=== PATIENT | female | born 1930 | race Caucasian/White ===

== ENCOUNTER → 2017-10-31 | Outpatient (CLI) | payer MEDICARE ==
[~2017-10-31] MED LIST: ALIGN4 MG PO; ASPIR 8181 MG PO; CALCIUM 600 +1 EAC1 PO; COUMADIN 5 MG TA5 M1 PO; HAIR SKIN NAIL1 EACH PO; NORVASC5 MG PO; OSTEO BI-FLEX1 EAC1 PO; PANTOPRAZOLE SO40 M1 PO; WOMEN MULTIVIT1 EACH PO
--- NOTE | 2017-10-31 17:12 | 2DMMODE ---
[place] [address] 2 D/M-MODE ECHOCARDIOGRAM Name: MADDY BIANCHI Room: [facility]#: [id number] Admission: 10/31/17 Attend Phys: Siva Rascon, Discharge: Date of : 30 Date of Service: 10/31/17 1712 Report #: [id number] THIS REPORT FOR: //name// APPROVED REPORT Study performed: 10/31/2017 14:15:44 EXAM: Comprehensive 2D, Doppler, and color-flow Echocardiogram Patient Location: Out-Patient Status: routine BSA: 1.55 HR: 82 bpm BP: 128/62 mmHg Other Information Study Quality: Good Indications Aortic valve replacement 2D Dimensions LVEF(%): 57.49 (>50%) IVSd: 10.60 (7-11mm) LVOT Diam: 20.18 (18-24mm) LVDd: 34.76 mm PWd: 10.46 (7-11mm) Ascending Ao: 30.69 (22-36mm) LVDs: 24.52 (25-40mm) Aortic Root: 20.96 mm Hunter's LVEF: 57.49 % Volumes Left Atrial Volume (Systole) LA ESV Index: 19.20 mL/m2 Aortic Valve AoV Peak Edgar.: 3.23 m/s AO Peak Gr.: 41.65 mmHg LVOT Max P.38 mmHg AO Mean Gr.: 20.90 mmHg LVOT Mean P.60 mmHg LVOT Max V: 1.45 m/s AO V2 VTI: 57.33 cm LVOT Mean V: 0.85 m/s MACRINA (VTI): 1.53 cm2 LVOT V1 VTI: 27.39 cm Mitral Valve MV Peak Gr.: 11.88 mmHg MV Mean Gr.: 7.05 mmHg E/A Ratio: 0.86 [place] [address] 2 D/M-MODE ECHOCARDIOGRAM Name: MADDY BIANCHI Room: [facility]#: [id number] Admission: 10/31/17 Attend Phys: Siva Rascon, Discharge: Date of : 30 Date of Service: 10/31/17 1712 Report #: [id number] MV Decel. Time: 178.19 ms MV E Max Edgar.: 1.21 m/s MV PHT: 51.67 ms MVA (PHT): 4.26 cm2 TDI E/Lateral E': 17.29 E/Medial E': 17.29 Medial E' Edgar.: 0.07 m/s Lateral E' Edgar.: 0.07 m/s Pulmonary Valve PV Peak Edgar.: 1.04 m/s PV Peak Gr.: 4.34 mmHg Tricuspid Valve TR Peak Gr.: 26.60 mmHg RVSP: 31.60 mmHg Left Ventricle The left ventricle is normal size. There is a septal wall motion abnormality consistent with prior bypass procedure. There is normal left ventricular wall thickness. Left ventricular systolic function vigorous. LVEF is greater than 70%. Grade I - abnormal relaxation pattern. Right Ventricle The right ventricle is normal size. The right ventricular systolic function is normal. Atria The left atrium size is normal. The right atrium size is normal. Aortic Valve Mechanical aortic valve is present. No aortic regurgitation is present. There is no aortic valvular stenosis. Mitral Valve Mitral valve leaflets are thickened. Moderate mitral annular calcification. Mild mitral regurgitation. Moderate mitral stenosis. Tricuspid Valve The tricuspid valve is normal in structure. Mild tricuspid regurgitation. The RVSP is _31.6 mmHg. Pulmonic Valve The pulmonary valve is normal in structure. There [place] [address] 2 D/M-MODE ECHOCARDIOGRAM Name: MADDY BIANCHI Room: [facility]#: [id number] Admission: 10/31/17 Attend Phys: Siva Rascon, Discharge: Date of : 30 Date of Service: 10/31/17 1712 Report #: [id number] valvular regurgitation. Great Vessels The aortic root is normal in size. IVC is normal in size and collapses with >50% inspiration Pericardium There is no pericardial effusion. <Conclusion> The left ventricle is normal size. There is normal left ventricular wall thickness. Left ventricular systolic function vigorous. LVEF is greater than 70%. Grade I - abnormal relaxation pattern. Mechanical aortic valve is present. No aortic regurgitation is present. There is no aortic valvular stenosis. Mitral valve leaflets are thickened. Moderate mitral annular calcification. Mild mitral regurgitation. Mild tricuspid regurgitation. The RVSP is _31.6 mmHg. <ELECTRONICALLY SIGNED> By: Siva Rascon MD, FACC 10/31/171711 11 11 Siva Rascon MD, FACC /INF
== END ==
LOC: M.CRD 14:00
DX: I08.1 Rheumatic disorders of both mitral and tricuspid valves (principal); Z95.2 Presence of prosthetic heart valve

== ENCOUNTER 2018-02-23 12:35 | Observation (INO) | payer MEDICARE ==
[~2018-02-23] VITALS: Ht 170.2 cm; Wt 51.0 kg
[2018-02-23 12:42] VITALS: BP 128/58
[2018-02-23] MEDS ORDERED: OSTEO BI-FLEX1 EAC1 PO (12:45)
[2018-02-23] MEDS ORDERED: COUMADIN 5 MG TA5 M1 PO (12:45)
[2018-02-23] MEDS ORDERED: HAIR SKIN NAIL1 EACH PO (12:46)
[2018-02-23] MEDS ORDERED: CALCIUM 600 +1 EAC1 PO (12:46)
[2018-02-23] MEDS ORDERED: NORVASC5 MG PO (12:46)
[2018-02-23] MEDS ORDERED: ALIGN4 MG PO (12:46)
[2018-02-23] MEDS ORDERED: WOMEN MULTIVIT1 EACH PO (12:46)
[2018-02-23 12:51] LABS: ABSOLUTE EOSINOPHILS 0.2 thou/uL (0.0-0.7); ABSOLUTE LYMPHOCYTES 1.6 thou/uL (0.8-5.3); ABSOLUTE MONOCYTES 0.7 thou/uL (0.0-1.2); ABSOLUTE NEUTROPHILS 4.3 thou/uL (1.6-8.1); BASOPHILS 0.6 %; EOSINOPHILS 2.5 %; HEMATOCRIT 39.7 % (37.0-47.0); HEMOGLOBIN 13.4 gm/dL (12.0-15.0); LYMPHOCYTES 24.2 %; MCH 32.3 pg (26.0-34.0); MCHC 33.8 g/dL (28.0-37.0); MCV 95.5 fL (80.0-100.0); MPV 9.1 fl. (7.2-11.1); NUCLEATED RBCS 0 /100WBC; PLATELET COUNT* 156 thou/uL (150-400); POLYS 62.7 %; RBC 4.15 mil/uL (4.20-5.00); RDW-CV 13.8 % (10.5-14.5); WBC 6.8 thou/uL (4.0-11.0)
[2018-02-23 12:59] LABS: ANION GAP 4 mmol/L (7-16); BUN 15 mg/dL (7-18); CALCIUM 8.4 mg/dL (8.5-10.1); CHLORIDE 106 mmol/L (98-107); CO2 33 mmol/L (21-32); CREATININE 0.6 mg/dL (0.6-1.3); GLUCOSE 124 mg/dL (70-99); POTASSIUM 3.6 mmol/L (3.5-5.1); SODIUM 143 mmol/L (136-145)
[2018-02-23 13:12] LABS: ALBUMIN 3.6 g/dL (3.4-5.0); ALKALINE PHOSPHATASE 55 U/L (46-116); LIPASE 149 U/L (73-393); NT-PRO BRAIN NAT PEPTIDE 442 pg/mL (<300); SGOT 44 U/L (15-37); SGPT 33 U/L (30-65); TOTAL BILIRUBIN 0.5 mg/dL (<0.1-1.0); TOTAL PROTEIN 6.9 g/dL (6.4-8.2); TROPONIN-I LEVEL <0.06 ng/mL (<0.06)
[2018-02-23 14:00] LABS: INR 2.9; PROTIME 27.4 Seconds (9.20-11.50)
--- NOTE | 2018-02-23 15:19 | EKG ---
[place] [address] ELECTROCARDIOGRAM REPORT Name: MADDY BIANCHI Room: [place] [address] ADM IN [facility]#: [id number] Admission: 02/23/18 Attend Phys: Lola Fung MD Discharge: Date of : 30 Report #: [id number] THIS REPORT FOR: //name// [facility] ED Test Date: 2018-02-23 Test Time: 12:39:58 Pat Name: MADDY BIANCHI Department: Room: Gender: F Senior Java Programmer Analyst: : 1930 Requested By: Christopher Andrea Order Number: [id number] MD: Pascual Bowers Measurements Intervals [place] Rate: 75 P: -72 HI: 296 QRS: -47 QRSD: 123 T: 85 QT: 418 QTc: 467 Interpretive Statements Sinus or ectopic atrial rhythm Prolonged HI interval LEFT VENTRICULAR HYPERTROPHY with repolarization changes No previous ECG available for comparison Electronically Signed On 02-23-2018 15:19:02 CDT by Pascual Bowers [email or web address] <ELECTRONICALLY SIGNED> By: Pascual Bowers MD, [facility] 02/23/18 1519 1239 [id number] Pascual Bowers MD, FACC /EPI
[2018-02-23 16:55] VITALS: BP 129/58
[2018-02-23 17:30] VITALS: BP 164/74
[2018-02-24] VITALS: BP 106/51
[2018-02-24 04:00] VITALS: BP 114/63
[2018-02-24 08:15] VITALS: BP 125/62
[2018-02-24 12:27] VITALS: BP 129/62
[2018-02-24] MEDS ORDERED: PANTOPRAZOLE SO40 M1 PO (15:15)
[2018-02-24] MEDS ORDERED: ASPIR 8181 MG PO (15:15)
[2018-02-24 15:28] VITALS: BP 129/62
[2018-02-24 15:55] VITALS: BP 144/61
--- NOTE | 2018-03-01 14:13 | CON ---
[address] [address] CONSULTATION Name: TASHMADDY Aguilar Room: [address] [facility]#: [id number] Admission: 02/23/18 Attend Phys: Lola Fung MD Discharge: 02/24/18 Date of : 30 Report #: [id number] THIS REPORT FOR: //name// CC: Lola Rascon DATE OF SERVICE: 02/24/2018 HISTORY OF PRESENT ILLNESS: The patient is an 87-year-old single white female who I was asked to see in the hospital today after she complained of chest pain. The history was obtained from the patient as well as some old records. She apparently presented with aortic stenosis back in 1997. She underwent aortic valve replacement using a [place] valve at [facility]. She previously was followed by the marble machine operator, Dr. Matty Orellana. She has been on warfarin ever since that time. Apparently, heart catheterization showed no significant coronary artery disease and she did not require bypass surgery. She had an echocardiogram done in October that showed normal left ventricular function and the valves were functioning normally. The patient is not very active because of her age, but denies any recent shortness of breath, palpitations or bleeding. She does have an INR home monitor. She was doing well until recently. She notes the pain on the left side of her chest. It is not related to exertion or meals. She denied any trauma to the chest. She has had no rash. No associated shortness of breath, diaphoresis or nausea. She called Dr. Rascon's office and was told to come to the Emergency Room and she is admitted for further evaluation and treatment. She ambulates with a cane and denies any increased shortness of breath, palpitations, syncope or edema. PAST MEDICAL HISTORY: Otherwise significant for previous cataract extraction, cholecystectomy, hysterectomy, knee replacement and hypertension. MEDICATIONS: Include amlodipine, Evista and warfarin. ALLERGIES: SHE HAS A PREVIOUS INTOLERANCE TO CONTRAST. FAMILY HISTORY: Negative for heart disease. SOCIAL HISTORY: She is , lives in [place], no smoking use, alcohol abuse. REVIEW OF SYSTEMS: She has had no history of stroke, asthma, peptic ulcer disease, liver disease, kidney disease, cancer, psychiatric illness or chronic skin condition. PHYSICAL EXAMINATION: [place] [address] CONSULTATION Name: TASHMADDY Room: [address] [place] T#: [id number] Admission: 02/23/18 Attend Phys: Lola Fung MD Discharge: 02/24/18 Date of : 30 Report #: [id number] GENERAL: Revealed an elderly frail appearing female sitting in a chair. She appeared in no distress. VITAL SIGNS: She had a blood pressure of 120/60 and pulse 70. She is afebrile. HEENT: She was anicteric and conjunctiva pink. Mucous membranes are moist. NECK: Veins are not distended. No carotid bruits. CHEST: Clear to auscultation. CARDIOVASCULAR: Metallic aortic opening and closing sound, grade 2 systolic ejection murmur. ABDOMEN: Soft and nontender. EXTREMITIES: Had no edema. Dorsalis pedis pulse 2+ bilaterally. SKIN: Cool and dry. NEUROLOGIC: Nonfocal. RADIOLOGICAL DATA: Her ECG shows a sinus rhythm with left ventricular hypertrophy and repolarization changes. LABORATORY DATA: Sodium 143, potassium 3.6, creatinine 0.6 and glucose 124. Liver function studies were normal. Troponin is 0.06. Her INR on admission was 3.0. White blood cell count 6.8 and hemoglobin 13.4. IMPRESSION AND RECOMMENDATIONS: 1. Chest pain. Atypical for angina. Suspect noncardiac. Recommend no cardiac workup. It is reasonable discharging the patient at this time. 2. Status post aortic valve replacement. Valve appears to be functioning normally. I would continue anticoagulation and maintain an INR of 2-3. 3. Hypertension. The patient is on a calcium ____ mauricio. Blood pressure appears well controlled. <ELECTRONICALLY SIGNED> By: Pascual Bowers MD, [facility] 03/01/18 1413 1018 [id number] Bowers MD, FACC /nt
== END 2018-02-24 16:55 | disposition home or self-care (01) ==
LOC: M.ERS 12:35 → M.TBA-ER 14:37 → M.2W 14:37
PROVIDERS: Emergency Medicine Emergency Medical Services; ADMIT Internal Medicine
DX: R07.89 Other chest pain (principal); I10 Essential (primary) hypertension; Z79.01 Long term (current) use of anticoagulants; Z95.2 Presence of prosthetic heart valve; Z90.710 Acquired absence of both cervix and uterus; Z90.89 Acquired absence of other organs; Z98.890 Other specified postprocedural states